=== PATIENT | female | born 1950 | race Caucasian/White ===

== ENCOUNTER 2016-04-25 11:33 | Day surgery (SDC) | payer OTHER ==
--- NOTE | ~2016-04-25 | OP ---
Record Of Operation [facility] [address] [place]. [address] NAME: EMERSON HILLMAN : 46 STATUS : [facility]#: [id number] AGE: 65 ADM/REG DATE : 04/25/16 MR#: [id number] REPORT SERV DATE: 04/25/16 DICTATED BY: Ab ANDERSON DATE: 04/25/16 REPORT STATUS : Draft TRANSCRIBED BY: MODL DATE: 04/25/16 DATE OF PROCEDURE: 04/25/2016 PREOPERATIVE DIAGNOSIS: Right hydronephrosis, possible mid ureteral stone. POSTOPERATIVE DIAGNOSIS: Chronic right hydronephrosis without significant ureteral stone burden. PROCEDURE: Cystoscopy, right retrograde pyelography, ureteroscopy, double-J stent placement. SURGEON: Ab Anderson M.D. ANESTHESIA: General. COMPLICATIONS: None. DRAINS: 7-Norwegian x 22 cm Contour double-J stent (on a string). BRIEF HISTORY: Mrs. Hillman is a 65-year-old white female, well known to me over the years with recurrent stone disease. She has a right kidney that a bit functions poorly and also has contained some chronic upper tract stones. She has had intermittent obstruction on that side and has a chronic ureteral dilation due to a previous longstanding obstruction. She is asymptomatic during an evaluation for metastatic breast cancer. She was found to have right hydro and a possible small stone in the mid sacral area. Since she is about to start chemotherapy, she wanted to make sure that there was no obstructing stone and we decided to proceed urgently with ureteroscopy. The risks of bleeding, infection, anesthesia, injury to adjacent organs, need for postoperative stent, and etc. were all discussed. There were no unanswered questions. DESCRIPTION OF PROCEDURE: Under excellent general anesthesia, the patient was prepped and draped in a standard lithotomy position. Cystoscopy was performed with a 30-degree lens, revealed a normal bladder with a somewhat aberrantly located right ureteral orifice. No tumor, stones, or foreign bodies were noted. An 8-Norwegian cone-tipped catheter was used to perform a right retrograde pyelogram and showed chronic ureteral dilation starting in the area of the distal ureter. There were no obvious filling defects. I inserted an angled glidewire through a 5-Norwegian open-ended catheter and negotiated up a fairly tortuous right ureter and into the collecting system. I then inserted a short rigid ureteroscope and was able to follow the wire all the way up into the collecting system. I saw some small particulate matter, nothing that would I would really qualify as a stone. All of this was washed out. There was no obstructing stone and I think that her ureter drains reasonably well all things considered. I left the collecting system dilutely opacified and retrofitted the wire into the cystoscope. I then placed a 7-Norwegian x 22 cm Contour double-J stent which coiled nicely in the renal pelvis and bladder. I left the string fixed which was ultimately taped to the skin with Mastisol and Tegaderm. I plan to discharge Ms. Hillman as an outpatient with the following instructions: Record Of Operation [address] [address] NAME: EMERSON HILLMAN : 46 STATUS : [facility] PAT#: [id number] AGE: 65 ADM/REG DATE : 04/25/16 MR#: [id number] REPORT SERV DATE: 04/25/16 DICTATED BY: Ab ANDERSON DATE: 04/25/16 REPORT STATUS : Draft TRANSCRIBED BY: ARIES DATE: 04/25/16 DISCHARGE INSTRUCTIONS: 1. Home today. 2. The patient can remove the stent on 04/27/2016, to call with any problems. 3. Percocet 5/325 one to two p.o. q.4 hours p.r.n. pain, #12. 4. Pyridium 200 mg one p.o. t.i.d. p.r.n. bladder pain, #15. 5. Unless she is having problems, she should keep her planned followup with me for stone surveillance. NOEL/ARIES Ab Anderson M.D. / [id number] CC: Selma Moinque M.D. John McCravey, M.D.
[~2016-04-25 11:33] MED LIST: ACET500CAP PO; ADVIL PO; ASAB PO; COREG6 PO; CRESTOR20 MG PO; FLAGIV500 IV; Flagyl PO; GLUCPH PO; ISTALOL0.5 % PO; LEVOTHYROXIN137 MCG PO; LEVOTHYROXIN150 MCG PO; LIPITOR10 PO; LOTE20 PO; LOTENSIN HCT1 TA2 PO; MOBIC15 MG PO; NORV5 PO; OMNICEF300 PO; PCET PO; TESTOSTERONE 2 MG SL; VYTORIN 10/40 T1 TAB PO; XALAT OPH
[2016-04-25 12:04] LABS: BASOPHILS 0.5 %; BASOPHILS ABSOLUTE 0.03 10/3/uL (0.0-0.16); EOSINOPHILS ABSOLUTE 0.24 10/3/uL (0.0-0.53); HEMATOCRIT 38.2 % (36.0-48.0); HEMOGLOBIN 13.1 g/dL (12.0-16.0); IMMATURE GRANULOCYTES 0.2 %; IMMATURE GRANULOCYTES ABSOLUTE 0.01 10/3/uL (0.0-0.11); LYMPHOCYTES 29.6 %; LYMPHOCYTES ABSOLUTE 1.79 10/3/uL (0.67-4.30); MANUAL DIFF NO %; MEAN CORPUS HGB CONC 34.3 g/dL (32.0-36.0); MEAN CORPUSCULAR HEMOGLOB 31.8 pg (26.0-34.0); MEAN CORPUSCULAR VOLUME 92.7 fL (80-100); MEAN PLATELET VOLUME 9.6 fL (9.2-13.0); MONOCYTES 9.8 %; MONOCYTES ABSOLUTE 0.59 10/3/uL (0.21-1.20); NEUTROPHILS 55.9 %; NEUTROPHILS ABSOLUTE 3.39 10/3/uL (2.02-8.40); PLATELET COUNT 263 10/3/uL (150-400); RBC DISTRIBUTION WIDTH 13.3 % (12.0-16.0); RED CELL COUNT 4.12 10/6/uL (4.0-5.6); WHITE BLOOD CELLS 6.1 10/3/uL (4.5-10.5)
[2016-04-25 12:11] LABS: ASCORBIC ACID (UR NOT ORDER) NEG (NEG); BILIRUBIN, URINE NEGATIVE (NEG); KETONE, URINE NEGATIVE (NEG); LEUKOCYTE ESTERASE(NOT OR LARGE (NEG); WBC (NOT ORDERED) (RFLEX) 79 (0-5)
[2016-04-25 12:15] LABS: BUN (BLOOD UREA NITROGEN) 23 MG/DL (6-23); CALCIUM, SERUM 9.3 MG/DL (8.5-10.4); CHLORIDE, SERUM 106 MMOL/L (96-112); CO2 (CARBON DIOXIDE) 28 MMOL/L (24-34); GFR AFRICAN AMERICAN 60 ML/MIN (>=60); GFR NON AFRICAN AMERICAN 52 ML/MIN (>=60); GLUCOSE, SERUM 147 MG/DL (60-99); POTASSIUM, SERUM 3.8 MMOL/L (3.5-5.3); SODIUM, SERUM 142 MMOL/L (135-148)
== END 2016-04-25 15:20 | disposition home or self-care (01) ==
LOC: SDC 11:33
PROC: BT1DZZZ Fluoroscopy of Right Kidney, Ureter and Bladder (ICD-10-PCS; 2016-04-25)
PROC: 0T768DZ Dilation of Right Ureter with Intraluminal Device, Via Natural or Artificial Opening Endoscopic (ICD-10-PCS; principal; 2016-04-25 12:45)
DX: N13.30 Unspecified hydronephrosis (principal); I10 Essential (primary) hypertension; E78.00 Pure hypercholesterolemia, unspecified; E03.9 Hypothyroidism, unspecified; E11.9 Type 2 diabetes mellitus without complications; E66.9 Obesity, unspecified; Z68.41 Body mass index [BMI] 40.0-44.9, adult; G47.30 Sleep apnea, unspecified; H40.10X0 Unspecified open-angle glaucoma, stage unspecified; Z88.2 Allergy status to sulfonamides; Z96.652 Presence of left artificial knee joint; Z90.710 Acquired absence of both cervix and uterus; Z90.722 Acquired absence of ovaries, bilateral; Z87.442 Personal history of urinary calculi; Z85.3 Personal history of malignant neoplasm of breast; Z79.84 Long term (current) use of oral hypoglycemic drugs; Z79.899 Other long term (current) drug therapy; Z98.890 Other specified postprocedural states
CPT/HCPCS: 74420; 80048; 81001; 82962; 85025; 87086; 93005; C1758; C1769; C2617; J2250; J2405; J3010; Q9967